=== PATIENT | female | born 1945 | race African-American/Black ===

== ENCOUNTER 2021-09-05 20:40 | Inpatient (IN) | payer OTHER, MEDICAID ==
[~2021-09-05] VITALS: Ht 154.9 cm; Wt 58.7 kg
[~2021-09-05 20:40] MED LIST: ASPI-1497 PO; VERA240C2 PO
[2021-09-05] MEDS ORDERED: ASPIRIN 81MG TABLET PO ONE (21:30)
[2021-09-05 21:41] LABS: EOSINOPHILS % 3.6 % (0.0-5.0); HEMOGLOBIN. 11.3 g/dL (12.0-16.0); LYMPHOCYTES % 25.7 % (20.0-50.0); MEAN CORPUSCULAR HEMOGLOBIN 28.9 pg (28.0-32.0); MEAN CORPUSCULAR VOLUME 86.8 fL (81.0-99.0); MEAN PLATELET VOLUME 9.5 fl (7.4-10.4); MONOCYTES % 13.2 % (2.0-8.0); NEUTROPHILS % 56.5 % (40.0-76.0); PLATELET 246 x1000/uL (130-400); RED BLOOD CELL COUNT 3.92 mill/uL (4.2-5.4); RED CELL DISTRIBUTION WIDTH 17.3 % (11.6-14.6)
[2021-09-05 21:44] LABS: CHLORIDE 103 mEq/L (98-107)
[2021-09-06] VITALS (10 sets, daily range): BP systolic 86–144; BP diastolic 44–87
[2021-09-06] MEDS ORDERED: NICARDIPINE 100MCG/ML 10ML VIAL (CATH LAB) IV ONE (06:51)
[2021-09-06] MEDS ORDERED: HEPARIN SODIUM 1,000 UNIT/1ML VIAL IV ONE (06:51)
[2021-09-06] MEDS ORDERED: NITROGLYCERIN 50MCG/ML 10ML VIAL (CATH LAB) IV ONE (06:51)
[2021-09-06] MEDS: ASPIRIN 81MG TABLET PO SCH (08:45)
[2021-09-06] MEDS: FOLIC ACID/VITAMIN B COMP W-C TABLET PO SCH (08:46)
[2021-09-06] MEDS: SEVELAMER CARBONATE 800 MG TABLET PO SCH ×3 (08:46→17:30)
[2021-09-06 08:58] LABS: BASOPHILS % 1.1 % (0.0-2.0); EOSINOPHILS % 5.8 % (0.0-5.0); HEMATOCRIT. 30.5 % (36.0-48.0); LYMPHOCYTES % 29.5 % (20.0-50.0); MEAN CORPUSCULAR HEMOGLOBIN 28.3 pg (28.0-32.0); MEAN CORPUSCULAR VOLUME 86.3 fL (81.0-99.0); MEAN PLATELET VOLUME 9.9 fl (7.4-10.4); MONOCYTES % 14.1 % (2.0-8.0); NEUTROPHILS % 49.5 % (40.0-76.0); PLATELET 218 x1000/uL (130-400); RED BLOOD CELL COUNT 3.54 mill/uL (4.2-5.4); RED CELL DISTRIBUTION WIDTH 17.3 % (11.6-14.6)
[2021-09-06] MEDS ORDERED: AMLODIPINE 10MG TABLET PO SCH (09:00)
[2021-09-06] MEDS: ENOXAPARIN 30MG/0.3ML SYR SUBCUT SCH (09:00)
[2021-09-06 09:14] LABS: CHLORIDE 106 mEq/L (98-107)
[2021-09-06 09:21] LABS: HDL CHOLESTEROL 55 mg/dL (40-59); LDL CHOLESTEROL 92 mg/dL (5-100); PHOSPHORUS 4.8 mg/dL (2.5-4.9)
[2021-09-06] MEDS ORDERED: LIDOCAINE HCL 1% 20ML VIAL (Pyxis) INJ ONE (10:20)
[2021-09-06] MEDS ORDERED: IODIXANOL 320MG/ML 100 ML BOTTLE IV ONE (10:20)
[2021-09-06] MEDS ORDERED: VERAPAMIL HCL 2.5 MG/1 ML 2ML VIAL IV ONE (10:24)
[2021-09-06] MEDS ORDERED: DIPHENHYDRAMINE 50MG/ML VIAL ONE (10:24)
[2021-09-06] MEDS ORDERED: FENTANYL CITRATE/PF 50MCG/ML 2ML VIAL ONE (10:48)
[2021-09-06] MEDS ORDERED: MIDAZOLAM HCL 2 MG/2 ML VIAL ONE (10:48)
[2021-09-06] MEDS ORDERED: ATROPINE SULFATE 1MG/10ML SYR ONE (11:18)
[2021-09-06] MEDS ORDERED: ATROPINE SULFATE 1MG/10ML SYR IV PRN (12:00)
[2021-09-07] VITALS (12 sets, daily range): BP systolic 83–112; BP diastolic 39–69
[2021-09-07 06:09] LABS: EOSINOPHILS % 6.4 % (0.0-5.0); HEMATOCRIT. 31.5 % (36.0-48.0); HEMOGLOBIN. 10.4 g/dL (12.0-16.0); LYMPHOCYTES % 28.6 % (20.0-50.0); MEAN CORPUSCULAR HEMOGLOBIN 28.8 pg (28.0-32.0); MEAN CORPUSCULAR VOLUME 87.6 fL (81.0-99.0); MEAN PLATELET VOLUME 10.1 fl (7.4-10.4); MONOCYTES % 12.5 % (2.0-8.0); NEUTROPHILS % 51.5 % (40.0-76.0); PLATELET 201 x1000/uL (130-400); RED BLOOD CELL COUNT 3.59 mill/uL (4.2-5.4); RED CELL DISTRIBUTION WIDTH 17.2 % (11.6-14.6)
[2021-09-07 07:25] LABS: HEPATITIS B SURFACE AB < 3.1 mIU/mL
[2021-09-07 07:36] LABS: HEPATITIS B SURFACE ANTIGEN NEGATIVE
[2021-09-07] MEDS: SEVELAMER CARBONATE 800 MG TABLET PO SCH ×3 (09:32→17:00)
[2021-09-07] MEDS: ASPIRIN 81MG TABLET PO SCH (09:32)
[2021-09-07] MEDS: FOLIC ACID/VITAMIN B COMP W-C TABLET PO SCH (09:32)
[2021-09-07] MEDS: ENOXAPARIN 30MG/0.3ML SYR SUBCUT SCH (09:32)
[2021-09-08] VITALS (13 sets, daily range): BP systolic 91–121; BP diastolic 48–59
[2021-09-08] MEDS: ENOXAPARIN 30MG/0.3ML SYR SUBCUT SCH (09:00)
[2021-09-08] MEDS: ASPIRIN 81MG TABLET PO SCH (09:00)
[2021-09-08] MEDS: SEVELAMER CARBONATE 800 MG TABLET PO SCH ×3 (09:28→17:41)
[2021-09-08] MEDS: FOLIC ACID/VITAMIN B COMP W-C TABLET PO SCH (09:28)
[2021-09-09] VITALS (11 sets, daily range): BP systolic 98–124; BP diastolic 45–67
[2021-09-09 06:45] LABS: BASOPHILS % 0.8 % (0.0-2.0); EOSINOPHILS % 5.1 % (0.0-5.0); HEMATOCRIT. 28.1 % (36.0-48.0); HEMOGLOBIN. 9.5 g/dL (12.0-16.0); LYMPHOCYTES % 28.2 % (20.0-50.0); MEAN CORPUSCULAR HEMOGLOBIN 28.9 pg (28.0-32.0); MEAN CORPUSCULAR VOLUME 85.3 fL (81.0-99.0); MEAN PLATELET VOLUME 10.6 fl (7.4-10.4); MONOCYTES % 12.5 % (2.0-8.0); NEUTROPHILS % 53.4 % (40.0-76.0); PLATELET 175 x1000/uL (130-400); RED BLOOD CELL COUNT 3.29 mill/uL (4.2-5.4); RED CELL DISTRIBUTION WIDTH 17.5 % (11.6-14.6)
[2021-09-09] MEDS: FOLIC ACID/VITAMIN B COMP W-C TABLET PO SCH (08:13)
[2021-09-09] MEDS: ENOXAPARIN 30MG/0.3ML SYR SUBCUT SCH (08:13)
[2021-09-09] MEDS: ASPIRIN 81MG TABLET PO SCH (08:13)
[2021-09-09] MEDS: SEVELAMER CARBONATE 800 MG TABLET PO SCH ×3 (08:13→19:18)
[2021-09-10] VITALS (11 sets, daily range): BP systolic 95–120; BP diastolic 45–68
[2021-09-10] MEDS ORDERED: CEFAZOLIN 1000MG PREMIX 100 ML IV ONE (06:34)
[2021-09-10] MEDS ORDERED: GENTAMICIN/NS IRRIGATION 500 ML IR ONE (06:38)
[2021-09-10] MEDS ORDERED: LIDOCAINE HCL 1% 20ML VIAL (Pyxis) INJ ONE (06:38)
[2021-09-10] MEDS ORDERED: MIDAZOLAM HCL 2 MG/2 ML VIAL ONE (06:38)
[2021-09-10] MEDS ORDERED: FENTANYL CITRATE/PF 50MCG/ML 2ML VIAL ONE (06:38)
[2021-09-10] MEDS ORDERED: IOHEXOL-300 100 ML BOTTLE ONE (06:42)
[2021-09-10] MEDS ORDERED: MIDAZOLAM HCL 5 MG/5 ML VIAL ONE (07:44)
[2021-09-10] MEDS ORDERED: ATROPINE SULFATE 1MG/10ML SYR ONE (07:44)
[2021-09-10] MEDS: ASPIRIN 81MG TABLET PO SCH (11:41)
[2021-09-10] MEDS: SEVELAMER CARBONATE 800 MG TABLET PO SCH ×3 (11:41→16:31)
[2021-09-10] MEDS: ENOXAPARIN 30MG/0.3ML SYR SUBCUT SCH (11:42)
[2021-09-10] MEDS: FOLIC ACID/VITAMIN B COMP W-C TABLET PO SCH (11:46)
[2021-09-10] MEDS: ACETAMINOPHEN 325MG TABLET PO PRN ×2 (17:10→23:01)
[2021-09-11] VITALS (8 sets, daily range): BP systolic 94–133; BP diastolic 57–79
[2021-09-11 05:29] LABS: BASOPHILS % 0.8 % (0.0-2.0); EOSINOPHILS % 4.8 % (0.0-5.0); HEMATOCRIT. 29.2 % (36.0-48.0); HEMOGLOBIN. 9.8 g/dL (12.0-16.0); LYMPHOCYTES % 21.5 % (20.0-50.0); MEAN CORPUSCULAR HEMOGLOBIN 28.9 pg (28.0-32.0); MEAN CORPUSCULAR VOLUME 85.5 fL (81.0-99.0); MEAN PLATELET VOLUME 10.4 fl (7.4-10.4); MONOCYTES % 13.9 % (2.0-8.0); PLATELET 165 x1000/uL (130-400); RED BLOOD CELL COUNT 3.41 mill/uL (4.2-5.4); RED CELL DISTRIBUTION WIDTH 17.1 % (11.6-14.6)
[2021-09-11] MEDS ORDERED: CEFAZOLIN 1000MG PREMIX 50 ML IV SCH (09:00)
[2021-09-11] MEDS: ASPIRIN 81MG TABLET PO SCH (09:54)
[2021-09-11] MEDS: SEVELAMER CARBONATE 800 MG TABLET PO SCH ×2 (09:54→13:27)
[2021-09-11] MEDS: ENOXAPARIN 30MG/0.3ML SYR SUBCUT SCH (09:55)
[2021-09-11] MEDS: FOLIC ACID/VITAMIN B COMP W-C TABLET PO SCH (09:56)
[2021-09-11] MEDS: ACETAMINOPHEN 325MG TABLET PO PRN (11:15)
== END 2021-09-11 14:55 | disposition home or self-care (01) | DRG 242 ==
LOC: ER 20:40 → MICUSO 22:43 → 5EST 09-06 03:31
PROVIDERS: ADMIT Internal Medicine; ATTEND Internal Medicine
PROC: 4A023N7 Measurement of Cardiac Sampling and Pressure, Left Heart, Percutaneous Approach (ICD-10-PCS; principal; 2021-09-06)
PROC: B211YZZ Fluoroscopy of Multiple Coronary Arteries using Other Contrast (ICD-10-PCS; 2021-09-06)
PROC: 5A1D70Z Performance of Urinary Filtration, Intermittent, Less than 6 Hours Per Day (ICD-10-PCS; 2021-09-07)
PROC: 5A1D70Z Performance of Urinary Filtration, Intermittent, Less than 6 Hours Per Day (ICD-10-PCS; 2021-09-09)
PROC: 0JH606Z Insertion of Pacemaker, Dual Chamber into Chest Subcutaneous Tissue and Fascia, Open Approach (ICD-10-PCS; 2021-09-10)
PROC: 02HK3JZ Insertion of Pacemaker Lead into Right Ventricle, Percutaneous Approach (ICD-10-PCS; 2021-09-10)
PROC: 02H63JZ Insertion of Pacemaker Lead into Right Atrium, Percutaneous Approach (ICD-10-PCS; 2021-09-10)
PROC: 5A1D70Z Performance of Urinary Filtration, Intermittent, Less than 6 Hours Per Day (ICD-10-PCS; 2021-09-11)
DX: I21.4 Non-ST elevation (NSTEMI) myocardial infarction (principal); N18.6 End stage renal disease; I13.2 Hypertensive heart and chronic kidney disease with heart failure and with stage 5 chronic kidney disease, or end stage renal disease; I44.2 Atrioventricular block, complete; E44.0 Moderate protein-calorie malnutrition; I25.10 Atherosclerotic heart disease of native coronary artery without angina pectoris; I16.0 Hypertensive urgency; I50.9 Heart failure, unspecified; Z20.822 Contact with and (suspected) exposure to COVID-19; E78.5 Hyperlipidemia, unspecified; D64.9 Anemia, unspecified; Z86.73 Personal history of transient ischemic attack (TIA), and cerebral infarction without residual deficits; Z95.5 Presence of coronary angioplasty implant and graft; Z99.2 Dependence on renal dialysis; Z88.5 Allergy status to narcotic agent; Z68.24 Body mass index [BMI] 24.0-24.9, adult
CPT/HCPCS: 33208; 36415; 71045; 75820; 80048; 80053; 80061; 82330; 83880; 84100; 84443; 84484; 85025; 86706; 86803; 87340; 87426; 93005; 93306; 93458; 99291; A4565; C1769; C1785; C1887; C1893; C1898; J0461; J0690; J1200; J1644; J1650; J2250; J3010; J3490; Q9967